=== PATIENT | female | born 1935 | race Caucasian/White ===

== ENCOUNTER 2019-11-05 13:51 | Outpatient (CLI) | payer MEDICARE, SELFPAY ==
--- NOTE | 2019-11-05 14:01 | USCV_ITS ---
Maria Teresa Gutierrez Age: 84 Gender: F : 1935 Exam Date: 11/05/2019 14:09 Ordering Phys: Matthew Sosa MD Technologist: Nani Fraire Exam Location: [facility] [place] Indication: CERVICAL DISC DISORDER TIA. BALANCE PROBLEMS Risk Factors: Unknown Previous Vascular Surgery: None Right Brachial BP: / Left Brachial BP: / Right Left Velocity (cm/s) Spectral Plaque Velocity (cm/s) Spectral Plaque Syst/Diast Broadening Syst/Diast Broadening 90.40/ 15.40 Prox CCA 109.80/ 19.10 65.40/ 17.30 Mid CCA 79.20 / 17.30 69.20/ 16.30 Distal CCA 62.60 / 12.80 67.10/ 14.30 Prox ICA 84.50 / 14.50 58.10/ 20.40 Mid ICA 73.70 / 17.10 61.10/ 16.70 Distal ICA 62.60 / 18.40 128.40 ECA 112.20 1.03 ICA/CCA 1.07 Antegrade Vertebral Antegrade 58.10/ 18.10 cm/s 53.30/ 11.50 cm/s Bi Subclavian Bi 136.6 97.10 0 FINDINGS Intimal thickening and minimal plaques at the bifurcations and internal carotid arteries bilaterally Antegrade flow in the vertebral arteries bilaterally Normal Doppler flow velocities in the external carotid arteries bilaterally CONCLUSIONS Intimal thickening and minimal plaques at the bifurcations and internal carotid arteries bilaterally. No significant stenosis, based on the above findings. Dr Marti Linn MD [facility] (Electronically Signed) Final Date: 06 November 2019 16:59 S
--- NOTE | 2019-11-05 14:01 | CT_ITS ---
WS: [id number] CT CERVICAL SPINE TECHNIQUE: Noncontrast CT of the cervical spine with coronal and sagittal reformatted images. CLINICAL INFORMATION: CERVICAL DISC DISORDER/TIA COMPARISON: DLP: 797.[address] scans at [facility] use at least one of these dose optimization techniques: automat ed exposure control; mA and/or kV adjustment per patient size (includes targeted exams where dose is matched to clinical indication); or iterative reconstruction. FINDINGS: Straightening of the normal cervical lordosis. Moderate spondylitic changes. Postoperative changes po sterior screw fixation C1-2 with interconnecting rods. Hardware appears in good position. No evidence of hardware loosening. Hardware is new since 2016. Healed C2 dens fracture. Healed C1 ring fractures . C2-C3: No significant disc bulging. Spinal canal and foramen are patent. C3-C4: Mild disc bulging with osteophytic ridging. Moderate facet arthropathy. Moderate left greater than right bony foraminal narrowing. Mild central canal stenosis. C4-C5: Disc osteophyte complex with small central disc protrusion. Mild central canal stenosis. Sever e right and moderate left bony foraminal narrowing. Moderate facet arthropathy. C5-C6: Disc osteophyte complex with endplate ridging. Moderate central canal stenosis. Dorsal ligamen t calcification contributes to central canal stenosis. Moderate left and mild right bony foraminal na rrowing. Moderate facet arthropathy. C6-C7: Disc osteophyte complex with endplate ridging. Mild central canal stenosis. Severe right and m oderate left bony foraminal narrowing. Uncovertebral joint hypertrophy. C7-T1: Mild left and no significant right foraminal narrowing. Spinal canal is patent. T1-2: Mild right bony foraminal narrowing. Left foramen is patent. Spinal canal is patent. Multinodular thyroid. Mastoid air cells are well aerated. CT/CT cervical spin wo con* [id number] IMPRESSION: 1. Healed C1 and C2 fractures with dorsal screw fixation with interconnecting rods. Hardware appears well seated. Normal cervical alignment. 2. Mild central canal stenosis C3-C4 and C4-C5. Moderate central canal stenosi s C5-C6. Mild central canal stenosis C6-7. 3. Moderate to severe multilevel bony foraminal narrowing worse at left C3-C4, right C4-5, left C5-6, right C6-7 4. Moderate right T1-2 bony foraminal narrowing.
== END 2019-11-05 13:52 | disposition home or self-care (01) ==
PROVIDERS: Family Provider Family Medicine; PCP Family Medicine; Visit Provider Family Medicine
DX: M50.90 Cervical disc disorder, unspecified, unspecified cervical region (principal); G45.9 Transient cerebral ischemic attack, unspecified; M48.02 Spinal stenosis, cervical region
CPT/HCPCS: 72125; 93880